=== PATIENT | female | born 1965 | race Caucasian/White ===

== ENCOUNTER 2016-10-24 19:49 | Emergency (ER) | payer BC, OTHER ==
[~2016-10-24] VITALS: Ht 157.5 cm; Wt 74.6 kg
[~2016-10-24 19:49] MED LIST: BYSTOLIC10 MG PO; BYSTOLIC5 MG PO; CHLORZOXAZONE500 MG PO; COZAAR100 MG PO; COZAAR50 MG PO; DILAUDID2 MG PO; FIORICET,ESG1 TABLET PO; LOSARTAN POTASS50 MG PO; MEDROL DOSEPAK4 MG PO; MIRALAX255 GM PO; MORPHINE SULFAT15 M1 PO; MOTRIN800 MG PO; PAXIL10 MG PO; TIZANIDINE HCL4 MG PO; TYLENOL EXTRA500 MG PO; ZANAFLEX4 M1 PO
[2016-10-24 21:31] LABS: MCH 31.1 PG (29.0-34.0); MCHC 34.2 G/DL (30.0-36.0); MCV 90.9 FL (83-99); MEAN PLAT.VOLUME 9.6 uM^3 (9.5-12.4); PLATELET COUNT 138 K/uL (156-360); RBC DIS.WIDTH-CV 11.9 % (11.8-14.6); RBC DIS.WIDTH-SD 39.2 % (39-53); RED BLOOD COUNT 5.28 M/uL (3.80-5.20); WHITE BLOOD COUNT 4.9 K/uL (4.1-10.2)
[2016-10-24] MEDS ORDERED: BYSTOLIC20 MG PO (21:36)
[2016-10-24] MEDS ORDERED: LOSARTAN POTAS100 MG PO (21:37)
[2016-10-24] MEDS ORDERED: PAROXETINE HCL20 MG PO (21:37)
[2016-10-24] MEDS ORDERED: TIZANIDINE HCL4 MG PO (21:38)
[2016-10-24] MEDS ORDERED: HOMATROP (21:40)
[2016-10-24] MEDS ORDERED: XOPENEX HF200 INHALA IH (21:40)
[2016-10-24] MEDS ORDERED: HYDROCODONE (21:40)
[2016-10-24 21:43] LABS: CHLORIDE 102 mEq/L (99-109); POTASSIUM 3.3 mEq/L (3.7-5.4); SODIUM 139 mEq/L (136-147)
[2016-10-24 21:45] LABS: GLUCOSE 139 mg/dL (70-99)
[2016-10-24 21:46] LABS: ANION GAP 12 MEQ/L (2-14)
[2016-10-24 21:49] LABS: GFR ESTIMATE (CALCULATED) 55 mL/min/
[2016-10-24 21:50] LABS: UREA NITROGEN (BUN) 15 mg/dL (9-23)
[2016-10-24 21:57] LABS: TROP-I INTERPRETATION NEGATIVE; TROPONIN-I < 0.01 ng/mL (0.0-0.30)
[2016-10-24] MEDS ORDERED: ZOFRAN ODT4 MG PO (22:22)
[2016-10-24 22:36] VITALS: BP 110/53
== END 2016-10-24 22:37 | disposition home or self-care (01) ==
LOC: EME 19:49
PROVIDERS: Emergency Medicine
DX: K52.9 Noninfective gastroenteritis and colitis, unspecified (principal); E86.0 Dehydration; I10 Essential (primary) hypertension; F17.200 Nicotine dependence, unspecified, uncomplicated; Z87.442 Personal history of urinary calculi; Z91.040 Latex allergy status; Z88.1 Allergy status to other antibiotic agents
CPT/HCPCS: 71020; 80048; 84484; 85027; 93005; 99281; 99284; J7030

== ENCOUNTER → 2016-12-09 | Outpatient (CLI) | payer BC, OTHER ==
[~2016-12-09] VITALS: Ht 157.5 cm; Wt 72.6 kg
[~2016-12-09] MED LIST changes: +BYSTOLIC20 MG PO; +HOMATROP; +HYDROCODONE; +LOSARTAN POTAS100 MG PO; +PAROXETINE HCL20 MG PO; +PAXIL20 MG PO; +XOPENEX HF200 INHALA IH; +ZANAFLEX4 MG PO; +ZOFRAN ODT4 MG PO
== END | disposition home or self-care (01) ==
LOC: AMB 09:30
PROC: 0DBE8ZZ Excision of Large Intestine, Via Natural or Artificial Opening Endoscopic (ICD-10-PCS; principal; 2016-12-09)
DX: Z12.11 Encounter for screening for malignant neoplasm of colon (principal); D12.0 Benign neoplasm of cecum; D12.2 Benign neoplasm of ascending colon; K57.90 Diverticulosis of intestine, part unspecified, without perforation or abscess without bleeding; K64.8 Other hemorrhoids; I10 Essential (primary) hypertension
CPT/HCPCS: 88305; J1100; J2250; J2405

== ENCOUNTER 2017-02-25 06:56 | Emergency (ER) | payer BC, OTHER ==
[~2017-02-25] VITALS: Ht 160 cm; Wt 69.9 kg
[2017-02-25 07:50] LABS: HEMATOCRIT 54.1 % (36.0-46.0); MCH 30.8 PG (29.0-34.0); MCHC 34.2 G/DL (30.0-36.0); MEAN PLAT.VOLUME 9.6 uM^3 (9.5-12.4); PLATELET COUNT 202 K/uL (156-360); RBC DIS.WIDTH-CV 11.8 % (11.8-14.6); RBC DIS.WIDTH-SD 39.1 % (39-53); RED BLOOD COUNT 6.01 M/uL (3.80-5.20); WHITE BLOOD COUNT 14.3 K/uL (4.1-10.2)
[2017-02-25 07:54] LABS: INTERNAL CONTROL VALID? YES
[2017-02-25 08:07] LABS: ANION GAP 11 MEQ/L (2-14); CHLORIDE 104 MEQ/L (99-109); POTASSIUM 4.1 MEQ/L (3.7-5.4); SAMPLE HEMOLYSIS CHECK 0; SAMPLE ICTERIC CHECK 0; SAMPLE LIPEMIA CHECK 0; SODIUM 135 MEQ/L (136-147)
[2017-02-25 08:12] LABS: GFR ESTIMATE (CALCULATED) 55 mL/min/; GLUCOSE 146 mg/dL (70-99); UREA NITROGEN (BUN) 20 mg/dL (9-23)
[2017-02-25 08:23] LABS: C DIFF TOXIN POSITIVE (NEGATIVE)
[2017-02-25 09:22] LABS: PROBE CHECK PASS
[2017-02-25 10:03] VITALS: BP 134/60
[2017-02-25] MEDS ORDERED: ZOFRAN ODT4 MG PO (10:22)
[2017-02-25] MEDS ORDERED: FLAGYL500 MG PO (10:22)
== END 2017-02-25 10:40 | disposition home or self-care (01) ==
LOC: EME 06:56
PROVIDERS: Nurse Practitioner Family
DX: A04.7 Enterocolitis due to Clostridium difficile (principal); J45.909 Unspecified asthma, uncomplicated; F32.9 Major depressive disorder, single episode, unspecified; I10 Essential (primary) hypertension; G43.909 Migraine, unspecified, not intractable, without status migrainosus; K21.9 Gastro-esophageal reflux disease without esophagitis
CPT/HCPCS: 74177; 80048; 83630; 85027; 87177; 87493; 87506; 99281; 99285; J2405; J7030

== ENCOUNTER 2017-03-12 16:53 | Emergency (ER) | payer BC, OTHER ==
[~2017-03-12] VITALS: Ht 160 cm; Wt 75.8 kg
[~2017-03-12 16:53] MED LIST changes: +FLAGYL500 MG PO
[2017-03-12 18:02] VITALS: BP 134/90
== END 2017-03-12 18:12 | disposition home or self-care (01) ==
LOC: EME 16:53
DX: S61.422A Laceration with foreign body of left hand, initial encounter (principal); W45.8XXA Other foreign body or object entering through skin, initial encounter; W22.8XXA Striking against or struck by other objects, initial encounter; Y93.44 Activity, trampolining; F17.200 Nicotine dependence, unspecified, uncomplicated; I10 Essential (primary) hypertension
CPT/HCPCS: 99281; 99284; S0020

== ENCOUNTER 2017-06-03 02:36 | Emergency (ER) | payer BC, OTHER ==
[~2017-06-03] VITALS: Ht 157.5 cm; Wt 78.3 kg
[2017-06-03 04:09] VITALS: BP 131/94
== END 2017-06-03 04:09 | disposition home or self-care (01) ==
LOC: EME 02:36
DX: G43.909 Migraine, unspecified, not intractable, without status migrainosus (principal); M54.2 Cervicalgia; I10 Essential (primary) hypertension; J45.909 Unspecified asthma, uncomplicated; F17.200 Nicotine dependence, unspecified, uncomplicated
CPT/HCPCS: 70450; 99281; 99284; J1885

== ENCOUNTER → 2017-07-06 | Outpatient (CLI) | payer BC, OTHER | END | disposition home or self-care (01) | LOC: CDC 11:08 | DX: G56.01 Carpal tunnel syndrome, right upper limb (principal); I49.3 Ventricular premature depolarization; R94.31 Abnormal electrocardiogram [ECG] [EKG] | CPT/HCPCS: 93000 ==